=== PATIENT | female | born 1990 | race Caucasian/White ===

== ENCOUNTER 2023-07-09 08:00 | Outpatient (CLI) | payer SELFPAY ==
[2023-07-10 10:07] LABS: BILIRUBIN,URINE NEGATIVE (NEGATIVE); GLUCOSE, URINE (UA) NEGATIVE (NEGATIVE); KETONES,URINE (UA) NEGATIVE (NEGATIVE); LEUKOCYTE ESTERASE, URINE SMALL (NEGATIVE); NITRITE,URINE NEGATIVE (NEGATIVE); OCCULT BLOOD,URINE NEGATIVE (NEGATIVE); PROTEIN,URINE NEGATIVE (NEGATIVE); UROBILINOGEN,URINE 0.2 (NORMAL) E.U./dL (NORMAL)
[2023-07-10 10:21] LABS: CLARITY,URINE CLEAR (CLEAR); RBC,URINE None Seen /HPF (0-5); SQUAMOUS EPITHELIAL CELL,UR FEW Squamous (<= Few); WBC,URINE 0-3 /HPF (0-5)
[2023-07-10 10:22] LABS: BACTERIA,URINE Few /HPF (None Seen); EPITHELIAL CELLS,UR RARE Transitional /HPF (<= Few)
[2023-07-10 23:05] LABS: CHLAMYDIA TRACHOMATIS DNA NEGATIVE (NEGATIVE); NEISSERIA GONORRHOEAE DNA NEGATIVE (NEGATIVE); TRICHOMONAS VAGINALIS DNA NEGATIVE (NEGATIVE)
== END 2023-07-09 08:01 | disposition home or self-care (01) ==
LOC: LAB.WC 08:00
PROVIDERS: ATTEND Nurse Practitioner
DX: O26.20 Pregnancy care for patient with recurrent pregnancy loss, unspecified trimester (principal)
CPT/HCPCS: 81001; 87086; 87491; 87591; 87661

== ENCOUNTER 2023-07-19 16:06 | Outpatient (CLI) | payer MEDICAID ==
--- NOTE | 2023-07-19 19:22 | Ultrasound Report ---
PROCEDURE: OB First Trimester INDICATIONS: HIGH RISK OUTSIDE/PRIOR DATING DATA: Last menstrual period (LMP): Unknown. LMP-based estimated date of delivery (KATLYN): Unknown. First dating scan (date and location): 07/19/2023. Estimated date of delivery (KATLYN) from first dating scan: 02/07/2024. TECHNIQUE: Real-time scanning was performed of the fetus and maternal pelvic organs, with image documentation. COMPARISON: None. FINDINGS: Intrauterine gestational sac present. Embryo: [place]-rump length measuring 4.2 cm, consistent with 11 weeks and 0 days. Heart rate: 164 bpm. Other: No perigestational fluid collection. Measurement variability in dating: +/- 4 weeks by LMP, +/- 7 days by mean sac diameter (use before 6 weeks gestation if crown-rump length not able to be measured), +/- 5 days by crown-rump length (6-12 weeks gestation). Maternal organs: Ovaries appear within normal limits. IMPRESSION: Single live intrauterine consistent with 11 weeks and 0 days. Reviewed by: Wade Urban MD on 07/19/2023 7:20 PM PST Approved by: Wade Urban MD on 07/19/2023 7:20 PM PST Station ID: [id number]
== END 2023-07-19 16:07 | disposition home or self-care (01) ==
LOC: DI 16:06
PROVIDERS: ATTEND Nurse Practitioner
DX: O26.21 Pregnancy care for patient with recurrent pregnancy loss, first trimester (principal); Z3A.11 11 weeks gestation of pregnancy

== ENCOUNTER 2023-09-04 09:58 | Outpatient (CLI) | payer MEDICAID ==
[2023-09-04 10:28] LABS: BASOPHILS % (AUTO) 0.4 %; EOSINOPHILS # (AUTO) 0.2 10^3/uL (0.0-0.7); EOSINOPHILS % (AUTO) 2.3 %; HCT - HEMATOCRIT 35.9 % (37.0-47.0); HGB - HEMOGLOBIN 12.2 g/dL (12.0-16.0); LYMPHOCYTES # (AUTO) 1.1 10^3/uL (1.5-3.5); LYMPHOCYTES % (AUTO) 14.5 %; MEAN CORPUSCULAR HEMOGLOBIN 29.8 pg (27.0-31.0); MEAN CORPUSCULAR VOLUME 87.8 fL (81.0-99.0); MONOCYTES # (AUTO) 0.3 10^3/uL (0.0-1.0); MONOCYTES % (AUTO) 3.7 %; NEUTROPHILS # (AUTO) 5.7 10^3/uL (1.5-6.6); NEUTROPHILS % (AUTO) 78.8 %; PLT - PLATELET COUNT 133 10^3/uL (130-450); RED BLOOD COUNT 4.09 10^6/uL (4.20-5.40); RED CELL DISTRIBUTION WIDTH 13.6 % (12.0-15.0); WHITE BLOOD COUNT 7.2 x10^3/uL (4.8-10.8)
[2023-09-04 10:42] LABS: ALBUMIN 4.1 g/dL (3.2-5.5); ALBUMIN/GLOBULIN RATIO 1.6 (1.0-2.2); BILIRUBIN,TOTAL 0.9 mg/dL (0.2-1.0); CREATININE 0.5 mg/dL (0.6-1.3); POTASSIUM 3.5 mmol/L (3.5-4.5); TOTAL PROTEIN 6.6 g/dL (6.4-8.9)
[2023-09-05 03:14] LABS: HCV AB Non Reactive (Non Reactive)
[2023-09-05 06:34] LABS: RPR Non Reactive (Non Reactive)
[2023-09-05 08:17] LABS: HBsAG SCREEN Negative (Negative); HIV SCREEN 4TH GENERATION Non Reactive (Non Reactive)
[2023-09-05 13:17] LABS: VARICELLA-ZOSTER AB IGG 1126 index (Immune >165)
== END 2023-09-04 09:59 | disposition home or self-care (01) ==
LOC: LAB 09:58
PROVIDERS: ATTEND Nurse Practitioner
DX: O26.20 Pregnancy care for patient with recurrent pregnancy loss, unspecified trimester (principal); O99.891 Other specified diseases and conditions complicating pregnancy; R42 Dizziness and giddiness
CPT/HCPCS: 36415; 80053; 82570; 84156; 85025; 86592; 86762; 86787; 86803; 86850; 86900; 86901; 87340; 87389

== ENCOUNTER 2023-09-07 08:00 | Outpatient (CLI) | payer MEDICAID ==
[2023-09-07 15:51] LABS: BILIRUBIN,URINE NEGATIVE (NEGATIVE); GLUCOSE, URINE (UA) NEGATIVE (NEGATIVE); KETONES,URINE (UA) NEGATIVE (NEGATIVE); LEUKOCYTE ESTERASE, URINE SMALL (NEGATIVE); NITRITE,URINE NEGATIVE (NEGATIVE); OCCULT BLOOD,URINE NEGATIVE (NEGATIVE); PH,URINE 6.5 PH (5.0-7.5); PROTEIN,URINE NEGATIVE (NEGATIVE); UROBILINOGEN,URINE 0.2 (NORMAL) E.U./dL (NORMAL)
[2023-09-07 16:05] LABS: BACTERIA,URINE Rare /HPF (None Seen); CLARITY,URINE CLEAR (CLEAR); RBC,URINE 0-5 /HPF (0-5); SQUAMOUS EPITHELIAL CELL,UR RARE Squamous (<= Few); WBC,URINE 0-3 /HPF (0-5)
== END 2023-09-07 23:59 | disposition home or self-care (01) ==
LOC: LAB.WC 08:00
PROVIDERS: ATTEND Nurse Practitioner
DX: O26.20 Pregnancy care for patient with recurrent pregnancy loss, unspecified trimester (principal)
CPT/HCPCS: 81001; 87086

== ENCOUNTER 2023-09-28 19:11 | Outpatient (CLI) | payer MEDICAID ==
--- NOTE | 2023-09-29 20:29 | Ultrasound Report ---
PROCEDURE: OB Anatomy Scan INDICATIONS: HIGH RISK OUTSIDE/PRIOR DATING DATA: Last menstrual period (LMP): Unknown. LMP-based estimated date of delivery (KATLYN): Unknown. First dating scan (date and location): 07/19/2023. Estimated date of delivery (KATLYN) from first dating scan: 02/07/2024. The below data below was generated using the study generated KATLYN of 02/07/2024 TECHNIQUE: Real-time scanning was performed of the fetus, with image documentation and biometric measurements. Endovaginal scanning: Not performed. COMPARISON: 07/19/2023 FINDINGS: General: A single living intrauterine gestation is present. Presentation: Variable Placenta: Placental position is anterior, without previa. Amniotic fluid index: 16.6 cm, within normal limits for gestational age. heart rate: 155 beats per minute. Maternal cervical canal: 5.25 cm long; normal length is 2.5 cm or more. biometrics: Biparietal diameter: 5.05 cm, 21 weeks, 2 days, 55.1% Head circumference: 18.59 cm, 20 weeks, 6 days, 30.7%. Abdominal circumference: 16.88 cm, 21 weeks, 6 days, 67.3%. Femur length: 3.4 cm, 20 weeks, 5 days, 25.3% Estimated gestational age from initial scan: 21 weeks, 1 day Composite gestational age from present scan: 21 weeks, 1 day Estimated weight and percentile: 413.4 g, 53.0%. Measurement variability in biometric dating: +/- 10 days from 12-20 weeks gestation, +/- 2 weeks from 20-30 weeks gestation, +/- 3 weeks at 30 weeks gestation or later. Anatomic survey: Neuro: Ventricles are normal at less than 10 mm. Cisterna magna is normal at 3-11 mm. Cerebellum i s normal in size and morphology. Nuchal skin fold: Normal at less than 6 mm between 14 and 20 weeks gestational age. Face: Nose and lips, facial profile are normal. Spine: No evidence for spina bifida. Heart: 4-chambered heart is present, with normal ventricular outflow tracts. Diaphragm: Diaphragm is intact. Stomach: Left-sided stomach is present. Kidneys: No hydronephrosis. Normal is less than 5 mm in 2nd trimester, less than 7 mm in 3rd trimester. Cord: 3 vessel cord has orthotopic insertion. Bladder: Normal in size. Extremities: All 4 extremities are visualized. IMPRESSION: 1. Single live intrauterine gestation with fetus in variable presentation. heart rate is 155 bp m. Normal amount of amniotic fluid. Normal growth. Estimated weight is at 53%. 2. Normal anatomic survey. Reviewed by: Bob Pollock MD on 09/29/2023 8:27 PM PST Approved by: Bob Pollock MD on 09/29/2023 8:27 PM PST Station ID: [id number]
== END 2023-09-28 19:12 | disposition home or self-care (01) ==
LOC: DI 19:11
PROVIDERS: ATTEND Nurse Practitioner
DX: O26.22 Pregnancy care for patient with recurrent pregnancy loss, second trimester (principal); Z3A.21 21 weeks gestation of pregnancy

== ENCOUNTER 2023-11-09 10:15 | Outpatient (CLI) | payer MEDICAID ==
[2023-11-09 11:36] LABS: HCT - HEMATOCRIT 35.9 % (37.0-47.0); HGB - HEMOGLOBIN 12.3 g/dL (12.0-16.0); MEAN CORPUSCULAR HEMOGLOBIN 30.5 pg (27.0-31.0); MEAN CORPUSCULAR HGB CONC 34.3 g/dL (32.0-36.0); MEAN CORPUSCULAR VOLUME 89.1 fL (81.0-99.0); MEAN PLATELET VOLUME 9.6 fL (7.9-10.8); RED BLOOD COUNT 4.03 10^6/uL (4.20-5.40); RED CELL DISTRIBUTION WIDTH 12.2 % (12.0-15.0); WHITE BLOOD COUNT 7.7 x10^3/uL (4.8-10.8)
== END 2023-11-09 10:16 | disposition home or self-care (01) ==
LOC: LAB 10:15
PROVIDERS: ATTEND Nurse Practitioner
DX: O09.522 Supervision of elderly multigravida, second trimester (principal)
CPT/HCPCS: 36415; 82950; 85027; 86850; 86900; 86901

== ENCOUNTER 2023-11-19 09:06 | Outpatient (CLI) | payer MEDICAID ==
--- NOTE | 2023-11-19 09:18 | PROVIDER PROGRESS NOTE ---
- HPI Chief Complaint: Decreased movement Current : Current EDU 02/07/24 Gestation 28 Weeks and 4 Days 3 Para 2 Vital Signs Temperature 98.1 F 11/19/23 09:26 Heart Rate 94 11/19/23 09:26 Respiratory Rate 17 11/19/23 09:26 Blood Pressure 117/59 L 11/19/23 09:26 Temperature 98.1 F 11/19/23 09:26 Heart Rate 94 11/19/23 09:26 Respiratory Rate 17 11/19/23 09:26 Blood Pressure 117/59 L 11/19/23 09:26 O2 Saturation If not protocol: Oxygen Flow, liters/minute - Procedures OB Procedure Performed: NST Diagnosis/Indication for NST: Decreased movement NST Procedure: FHT: 145 beats per baseline, moderate variability, accelerations present, no 1 variable deceleration. Reactive NST [place]: Rare Service Date of procedure: 11/19/23 (Read 11/19/23) - Plan Plan: Patient is a 33-year-old -0-0-2 at 28 weeks 4 days gestation presented with decreased movement. She says she felt baby move last night although less than before. She did try kick counts but noticed less moving than she would expect. Since arrival has had increased movement. Physical Exam Constitutional: alert, no acute distress, well hydrated, well developed, well nourished, appropriate dress. Abdomen: nondistended, nontender, no guarding. Psych: affect and mood appropriate, normal interaction, good eye contact. SINGH 13.1cm 33-year-old -0-0-2 at 28 weeks 4 days gestation with decreased movement Decreased movement -Adequate movement since arrival. Reassured after reactive NST. -Discussed kick counts and movement expectations. -One variable deceleration noted, but overall reassuring Normal SINGH -Follow up for routine care -Routine care
[2023-11-19 09:33] VITALS: BP 117/59
== END 2023-11-19 10:20 | disposition home or self-care (01) ==
LOC: WFO 09:06 → FBP 09:09 → WFO 10:20
PROVIDERS: ATTEND Obstetrics & Gynecology
DX: O36.8130 Decreased fetal movements, third trimester, not applicable or unspecified (principal); Z3A.28 28 weeks gestation of pregnancy
CPT/HCPCS: 59025; 99213

== ENCOUNTER 2023-12-04 15:52 | Outpatient (CLI) | payer MEDICAID ==
--- NOTE | 2023-12-05 21:02 | Ultrasound Report ---
PROCEDURE: OB Follow up INDICATIONS: UTERINE SIZE DISCREPANCY OUTSIDE/PRIOR DATING DATA: Last menstrual period (LMP): Unknown. LMP-based estimated date of delivery (KATLYN): Not applicable. First dating scan (date and location): 07/19/2023. Estimated date of delivery (KATLYN) from first dating scan: 02/07/2024. The below data below was generated using the clinical KATLYN of 02/07/2024 TECHNIQUE: Real-time scanning was performed of the fetus, with image documentation and biometric measurements. Endovaginal scanning: Not performed. COMPARISON: OB ultrasound on 09/28/2023 FINDINGS: General: A single living intrauterine gestation is present. Presentation: Vertex Placenta: Placental position is anterior, without previa. Amniotic fluid index: 11.5 cm, within normal limits for gestational age. heart rate: 152 beats per minute. Maternal cervical canal: 4.24 cm long; normal length is 2.5 cm or more. biometrics: Biparietal diameter: 7.79 cm, 31 weeks and 3 days, 56% Head circumference: 29.4 cm, 32 weeks and 3 days, 64.4% Abdominal circumference: 26.03 cm, 30 weeks and 1 day, 29.9% Femur length: 5.6 cm, 29 weeks and 4 days, 9.7% Estimated gestational age from initial scan: 30 weeks and 5 days Composite gestational age from present scan: 30 weeks and 6 days Estimated weight and percentile: 1540.7 g, 23.7% Measurement variability in biometric dating: +/- 10 days from 12-20 weeks gestation, +/- 2 weeks from 20-30 weeks gestation, +/- 3 weeks at 30 weeks gestation or more. Other: Not applicable. IMPRESSION: 1.Single living intrauterine gestation in vertex presentation. 2.Estimated weight is at the lower limits of normal at 23.7%. 3.Femur length is 5.6 cm at 9.7%. 4.SINGH is 11.5 cm. Reviewed by: Rand Wilson MD on 12/05/2023 9:01 PM PDT Approved by: Rand Wilson MD on 12/05/2023 9:01 PM PDT Station ID: [id number]
== END 2023-12-04 15:53 | disposition home or self-care (01) ==
LOC: DI 15:52
PROVIDERS: ATTEND Nurse Practitioner
DX: O26.843 Uterine size-date discrepancy, third trimester (principal); Z3A.30 30 weeks gestation of pregnancy

== ENCOUNTER 2023-12-14 10:01 | Outpatient (CLI) | payer MEDICAID ==
[2023-12-14 10:28] VITALS: BP 116/69
--- NOTE | 2023-12-14 10:53 | PROVIDER PROGRESS NOTE ---
- HPI Current : Vital Signs Temperature 209.5 F H 12/14/23 10:19 Heart Rate 85 12/14/23 10:19 Respiratory Rate 16 12/14/23 10:19 Blood Pressure 116/69 12/14/23 10:19 Temperature 209.5 F H 12/14/23 10:19 Heart Rate 85 12/14/23 10:19 Respiratory Rate 16 12/14/23 10:19 Blood Pressure 116/69 12/14/23 10:19 O2 Saturation If not protocol: Oxygen Flow, liters/minute - Procedures NST Procedure: NST Procedure Start Time 09:22 Stop Time 10:00 - Plan Plan: Patient is a 33-year-old -0-3-1 at 32 weeks 1 day gestation presenting today from clinic for cramping. She is unsure if this is labor. No dysuria. Good movement. No leaking or bleeding. Physical Exam Constitutional: alert, no acute distress, well hydrated, well developed, well nourished, appropriate dress. Cardiovascular: Regular rate and rhythm. Respiratory: no respiratory distress. Abdomen: nondistended, nontender, no guarding. Psych: affect and mood appropriate, normal interaction, good eye contact. FHT: 130 bpm baseline, moderate variability, accelerations present, no decelerations. Reactive [place]: Quiescent SVE: 0/0/-3 NST read and performed on 12/14/2023 Assessment and plan Abdominal cramping: -No contractions noted on monitor. Declined repeat cervical exam and as she is not louie, this is reasonable. On exam there was a large amount of discharge on my glove. -Vaginosis panel collected. Likely yeast infection. Will follow-up once results are back. Will likely treat as outpatient. False labor -Reactive NST, no contractions
[2023-12-14 15:45] LABS: BACTERIAL VAGINOSIS DNA POSITIVE (NEGATIVE)
[2023-12-14 15:46] LABS: CANDIDA GLABRATA DNA NEGATIVE (NEGATIVE); CANDIDA GROUP DNA POSITIVE (NEGATIVE); CANDIDA KRUSEI DNA NEGATIVE (NEGATIVE); TRICHOMONAS VAGINALIS DNA NEGATIVE (NEGATIVE)
== END 2023-12-14 11:50 | disposition home or self-care (01) ==
LOC: WFO 10:01 → FBP 10:05 → WFO 11:50
PROVIDERS: ATTEND Obstetrics & Gynecology
DX: O99.891 Other specified diseases and conditions complicating pregnancy (principal); R10.9 Unspecified abdominal pain; N89.8 Other specified noninflammatory disorders of vagina; O47.03 False labor before 37 completed weeks of gestation, third trimester; Z3A.32 32 weeks gestation of pregnancy
CPT/HCPCS: 59025; 81514; 99213; 99215

== ENCOUNTER 2024-01-06 09:36 | Emergency (ER) | payer MEDICAID ==
[2024-01-06 11:11] LABS: RAPID STREP SCREEN Negative (Negative)
[2024-01-06 11:25] LABS: B. PARAPERTUSSIS- RESP PCR PAN NOT DETECTED; B. PERTUSSIS- RESP PCR PANEL NOT DETECTED; C. PNEUMONIAE- RESP PCR PANEL NOT DETECTED; CORONAVIRUS 229E-RESP PCR NOT DETECTED; CORONAVIRUS HKU1-RESP PCR NOT DETECTED; CORONAVIRUS NL63-RESP PCR NOT DETECTED; CORONAVIRUS OC43-RESP PCR NOT DETECTED; HUMAN METAPNEUMOVIRUS NOT DETECTED; INFLUENZA A- RESP PCR PANEL NOT DETECTED; INFLUENZA B - RESP PCR PANEL NOT DETECTED; M. PNEUMONIAE- RESP PCR PANEL NOT DETECTED; PARAINFLUENZA VIRUS 1 NOT DETECTED; PARAINFLUENZA VIRUS 2 NOT DETECTED; PARAINFLUENZA VIRUS 3 NOT DETECTED; PARAINFLUENZA VIRUS 4 NOT DETECTED; RHINOVIRUS/ENTEROVIRUS DETECTED; RSV- RESP PCR PANEL NOT DETECTED; SARS-CoV-2 -RESP PCR PANEL NOT DETECTED
[2024-01-06 11:37] VITALS: BP 118/64
--- NOTE | 2024-01-06 11:46 | ED Physician Documentation ---
PD HPI URI - Stated complaint Stated Complaint: SOA,COUGH - Chief complaint Chief Complaint: Resp - History obtained from History obtained from: Patient - Additional information Additional information: Patient is a 33-year-old female who is approximately 35 weeks presenting for evaluation of cough and congestion for the past 3 days. Patient states she was coughing so hard last night that she felt like she was having trouble catching her breath but that has improved today. She has been feeling baby movement denies abdominal pain or discharge. Denies any complications with this . 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(s) : None HEENT: None Psych: None Musculoskeletal: None Derm: None - Past Surgical History Past Surgical History: Yes Ortho: Other - Present Medications Home Medications: Ambulatory Orders Medication Instructions Recorded Confirmed Pnv No.95/Ferrous Fum/Folic AC 1 each PO DAILY 01/06/24 01/06/24 [ Tablet] - Allergies Allergies/Adverse Reactions: Allergies Allergy/AdvReac Type Severity Reaction Status Date / Time No Known Drug Allergies Allergy Verified 01/06/24 09:43 - Social History Does the pt smoke?: No Smoking Status: Never smoker Does the pt drink ETOH?: No Does the pt have substance abuse?: Yes Substance Use and Type: Marijuana - Immunizations Immunizations are current?: No Immunizations: Other immun not current - POLST Patient has POLST: No PD ED PE NORMAL - General General: Alert and oriented X 3, No acute distress, Well developed/nourished - HEENT HEENT: Atraumatic, Moist mucous membranes, Pharynx benign (No oral swelling, erythema or exudate) - Neck Neck: Supple, no meningeal sign - Cardiac Cardiac: RRR, Strong equal pulses - Respiratory Respiratory: No respiratory distress, Clear bilaterally - Abdomen Abdomen: Normal bowel sounds, Soft, Other (Gravid uterus above umbilicus) - Derm Derm: Warm and dry - Extremities Extremities: No edema - Neuro Neuro: Normal speech Results - Vitals Vitals: Vital Signs - 24 hr 01/06/24 01/06/24 01/06/24 09:45 11:15 11:32 Temperature 36.2 C L Heart Rate 89 83 78 Respiratory 20 17 16 Rate Blood Pressure 113/76 118/64 O2 Saturation 99 99 99 01/06/24 11:50 Temperature 36.2 C L Heart Rate 90 Respiratory 16 Rate Blood Pressure 118/64 O2 Saturation 98 Oxygen O2 Source Room air - Labs Labs: Laboratory Tests 01/06/24 01/06/24 09:59 10:57 Nasal Adenovirus (PCR) NOT DETECTED Nasal B. parapertussis DNA (PCR) NOT DETECTED Nasal Coronavir 229E PCR NOT DETECTED Nasal Coronavir HKU1 PCR NOT DETECTED Nasal Coronavir NL63 PCR NOT DETECTED Nasal Coronavir OC43 PCR NOT DETECTED Nasal Enterovir/Rhinovir PCR DETECTED A Nasal Influenza B PCR NOT DETECTED Nasal Influenza A PCR NOT DETECTED Nasal Parainfluen 1 PCR NOT DETECTED Nasal Parainfluen 2 PCR NOT DETECTED Nasal Parainfluen 3 PCR NOT DETECTED Nasal Parainfluen 4 PCR NOT DETECTED Nasal RSV (PCR) NOT DETECTED Nasal B.pertussis DNA PCR NOT DETECTED Nasal C.pneumoniae (PCR) NOT DETECTED Jas Human Metapneumo PCR NOT DETECTED Nasal M.pneumoniae (PCR) NOT DETECTED Nasal SARS-CoV-2 (PCR) NOT DETECTED Group A Strep Rapid Negative PD Medical Decision Making - ED course Complexity details: reviewed results, d/w patient ED course: Patient is a 33-year-old female approximately 35 weeks presenting with cough and congestion for few days. VSS. Lungs clear. Rapid strep is negative. heart tones were obtained and patient has no signs of precipitous labor. Blood pressure is within normal limits. Symptoms are likely viral in nature and she has not had any significant coughing here. Doubt pulmonary embolism. Respiratory swab is pending at discharge but has resulted positive for rhinovirus. Patient was instructed on supportive care for likely viral illness. She is advised on concerning symptoms to return for. Departure - Departure Disposition: 01 Home, Self Care Clinical Impression: Rhinovirus, Upper respiratory infection with cough and congestion Condition: Stable Instructions: ED Viral Syndrome Comments: Your strep test is negative. Your respiratory swab is positive for Enterovirus/rhinovirus which causes, and cold symptoms.It is negative for COVID or flu. You can use benzocaine cough drops to help with your sore throat. I would also recommend saline spray in the nose to help loosen congestion. Return to the ER with any worsening symptoms. Forms: PCP List Discharge Date/Time: 01/06/24 11:51
[2024-01-06 11:56] VITALS: O2SAT 98
== END 2024-01-06 11:51 | disposition home or self-care (01) ==
LOC: ED 09:36
DX: O26.893 Other specified pregnancy related conditions, third trimester (principal); J06.9 Acute upper respiratory infection, unspecified; O98.513 Other viral diseases complicating pregnancy, third trimester; B34.8 Other viral infections of unspecified site; Z3A.35 35 weeks gestation of pregnancy
CPT/HCPCS: 87070; 87430; 87633; 99283

== ENCOUNTER 2024-01-11 08:00 | Outpatient (CLI) | payer MEDICAID ==
[2024-01-11 10:44] LABS: RUPTURE OF MEMBRANES PLUS NEGATIVE (NEGATIVE)
[2024-01-11 18:19] LABS: CHLAMYDIA TRACHOMATIS DNA NEGATIVE (NEGATIVE); NEISSERIA GONORRHOEAE DNA NEGATIVE (NEGATIVE)
[2024-01-11 18:20] LABS: BACTERIAL VAGINOSIS DNA NEGATIVE (NEGATIVE); CANDIDA GLABRATA DNA NEGATIVE (NEGATIVE); CANDIDA GROUP DNA NEGATIVE (NEGATIVE); CANDIDA KRUSEI DNA NEGATIVE (NEGATIVE); TRICHOMONAS VAGINALIS DNA NEGATIVE (NEGATIVE)
== END 2024-01-11 23:59 | disposition home or self-care (01) ==
LOC: LAB.WC 08:00
PROVIDERS: ATTEND Nurse Practitioner
DX: O99.891 Other specified diseases and conditions complicating pregnancy (principal); N89.8 Other specified noninflammatory disorders of vagina; Z36.85 Encounter for antenatal screening for Streptococcus B
CPT/HCPCS: 81514; 84112; 87491; 87591; 87661; 87797

== ENCOUNTER 2024-01-11 13:17 | Outpatient (CLI) | payer MEDICAID ==
--- NOTE | 2024-01-11 23:09 | Ultrasound Report ---
PROCEDURE: OB Biophysical Profile INDICATIONS: SUPERVISION OF OUTSIDE/PRIOR DATING DATA: Last menstrual period (LMP): Unknown. LMP-based estimated date of delivery (KATLYN): Not applicable. First dating scan (date and location): 07/19/2023. Estimated date of delivery (KATLYN) from first dating scan: 02/07/2024. The below data below was generated using the ultrasound KATLYN of 02/07/2024 TECHNIQUE: Real-time scanning was performed of the fetus, with image documentation and biometric nohemi surements. Biophysical profile was also obtained. Endovaginal scanning: Not performed COMPARISON: 12/04/2023 FINDINGS: General: A single living intrauterine gestation is present. Presentation: Vertex Placenta: Placental position is anterior, without previa. Amniotic fluid index: 12.0 cm cm, 32nd percentile for gestational age. heart rate: 160 beats per minute. Maternal cervical canal: 3.5 cm long; normal length is 2.5 cm or more. Estimated gestational age from initial scan: 36 weeks and 1 day. Biophysical profile: Tone: 2 points. Movement: 2 points. Respiration: 2 points. Largest pocket of fluid: 2 points. Largest vertical pocket measured 4.7 cm. IMPRESSION: Single living intrauterine gestation with estimated gestational age of approximately 36 weeks and 1 d ay. Biophysical profile score of 8 out of 8. Reviewed by: Ace Thibodeaux MD on 01/11/2024 11:08 PM PDT Approved by: Ace Thibodeaux MD on 01/11/2024 11:08 PM PDT Station ID: [id number]
== END 2024-01-11 13:18 | disposition home or self-care (01) ==
LOC: DI 13:17
PROVIDERS: ATTEND Nurse Practitioner
DX: O09.523 Supervision of elderly multigravida, third trimester (principal); Z3A.36 36 weeks gestation of pregnancy

== ENCOUNTER 2024-01-13 11:22 | Outpatient (CLI) | payer MEDICAID ==
[2024-01-13 11:38] VITALS: BP 115/72
--- NOTE | 2024-01-13 13:13 | PROCEDURE REPORT ---
- HPI Diagnosis/Indication for NST: Other (AMA) Vital Signs Temperature 98.1 F 01/13/24 11:26 Heart Rate 99 01/13/24 11:26 Respiratory Rate 16 01/13/24 11:26 Blood Pressure 115/72 01/13/24 11:26 Temperature 98.1 F 01/13/24 11:26 Heart Rate 99 01/13/24 11:26 Respiratory Rate 16 01/13/24 11:26 Blood Pressure 115/72 01/13/24 11:26 O2 Saturation If not protocol: Oxygen Flow, liters/minute - NST Procedure NST Procedure Start Time 10:28 Stop Time 11:28 - Results and Plan Findings/Impression: Reactive, Cat 1 Plan: Follow up as scheduled.
== END 2024-01-13 12:45 | disposition home or self-care (01) ==
LOC: WFO 11:22 → FBP 11:22 → WFO 12:45
PROVIDERS: ATTEND Obstetrics & Gynecology
DX: O09.523 Supervision of elderly multigravida, third trimester (principal); O34.211 Maternal care for low transverse scar from previous cesarean delivery; O26.23 Pregnancy care for patient with recurrent pregnancy loss, third trimester
CPT/HCPCS: 59025

== ENCOUNTER 2024-01-18 12:37 | Outpatient (CLI) | payer MEDICAID ==
--- NOTE | 2024-01-19 00:26 | Ultrasound Report ---
PROCEDURE: OB Biophysical Profile INDICATIONS: SUPERVISION OF OUTSIDE/PRIOR DATING DATA: Last menstrual period (LMP): Unknown. LMP-based estimated date of delivery (KATLYN): Unknown. First dating scan (date and location): 07/19/2023. Estimated date of delivery (KATLYN) from first dating scan: 02/07/2024. The below data below was generated using the working KATLYN of 02/07/2024 TECHNIQUE: Real-time scanning was performed of the fetus, with image documentation and biometric nohemi surements. Biophysical profile was also obtained. Endovaginal scanning: No COMPARISON: None. FINDINGS: General: A single living intrauterine gestation is present. Presentation: Vertex Placenta: Placental position is anterior, without previa. Amniotic fluid index: 15.8 cm, 63.9 for gestational age. heart rate: 143 beats per minute. Maternal cervical canal: 4.1 cm long; normal length is 2.5 cm or more. biometrics: Biparietal diameter: 8.9 cm, 36 week 1 day, 39 percentile Head circumference: 13.8 cm, 37 week 2 day, 27th percentile Abdominal circumference: 32 cm, 36 week 1 day, 34 percentile Femur length: 3.9 cm, 35 week 3 day, 10.9 percentile Estimated gestational age from initial scan: 37 week 1 day Composite gestational age from present scan: 36 week 2 day Estimated weight and percentile: 283 6 g, 28 percentile Measurement variability in biometric dating: +/- 10 days from 12-20 weeks gestation, +/- 2 weeks from 20-30 weeks gestation, +/- 3 weeks at 30 weeks gestation or later. Biophysical profile: Tone: 2 points. Movement: 2 points. Respiration: 2 points. Largest pocket of fluid: 2 points. IMPRESSION: Single live IVC consistent with 36 week 2 day gestation by current ultrasound. Biophysical profile score 8 out of 8 Reviewed by: Ricky Reynoso MD on 01/18/2024 11:24 PM JB Approved by: Ricky Reynoso MD on 01/18/2024 11:24 PM AKMIHIR Station ID: [id number]
== END 2024-01-18 12:38 | disposition home or self-care (01) ==
LOC: DI 12:37
PROVIDERS: ATTEND Nurse Practitioner
DX: O09.523 Supervision of elderly multigravida, third trimester (principal); Z3A.36 36 weeks gestation of pregnancy

== ENCOUNTER 2024-01-18 12:49 | Outpatient (CLI) | payer MEDICAID ==
--- NOTE | 2024-01-19 00:26 | Ultrasound Report ---
PROCEDURE: OB Follow up INDICATIONS: UTERINE SIZE DATE DISCREPENCY OUTSIDE/PRIOR DATING DATA: Last menstrual period (LMP): Unknown. LMP-based estimated date of delivery (KATLYN): Unknown. First dating scan (date and location): 07/19/2023. Estimated date of delivery (KATLYN) from first dating scan: 02/07/2024. The below data below was generated using the working KATLYN of 02/07/2024 TECHNIQUE: Real-time scanning was performed of the fetus, with image documentation and biometric nohemi surements. Biophysical profile was also obtained. Endovaginal scanning: No COMPARISON: None. FINDINGS: General: A single living intrauterine gestation is present. Presentation: Vertex Placenta: Placental position is anterior, without previa. Amniotic fluid index: 15.8 cm, 63.9 for gestational age. heart rate: 143 beats per minute. Maternal cervical canal: 4.1 cm long; normal length is 2.5 cm or more. biometrics: Biparietal diameter: 8.9 cm, 36 week 1 day, 39 percentile Head circumference: 13.8 cm, 37 week 2 day, 27th percentile Abdominal circumference: 32 cm, 36 week 1 day, 34 percentile Femur length: 3.9 cm, 35 week 3 day, 10.9 percentile Estimated gestational age from initial scan: 37 week 1 day Composite gestational age from present scan: 36 week 2 day Estimated weight and percentile: 283 6 g, 28 percentile Measurement variability in biometric dating: +/- 10 days from 12-20 weeks gestation, +/- 2 weeks from 20-30 weeks gestation, +/- 3 weeks at 30 weeks gestation or later. Biophysical profile: Tone: 2 points. Movement: 2 points. Respiration: 2 points. Largest pocket of fluid: 2 points. IMPRESSION: Single live IVC consistent with 36 week 2 day gestation by current ultrasound. Biophysical profile score 8 out of 8 Reviewed by: Ricky Reynoso MD on 01/18/2024 11:25 PM JB Approved by: Ricky Reynoso MD on 01/18/2024 11:25 PM JB Station ID: [id number]
== END 2024-01-18 12:50 | disposition home or self-care (01) ==
LOC: DI 12:49
PROVIDERS: ATTEND Obstetrics & Gynecology
DX: O26.843 Uterine size-date discrepancy, third trimester (principal); Z3A.36 36 weeks gestation of pregnancy

== ENCOUNTER 2024-01-26 11:11 | Outpatient (CLI) | payer MEDICAID ==
--- NOTE | 2024-01-26 20:03 | Ultrasound Report ---
PROCEDURE: OB Biophysical Profile INDICATIONS: SUPERVISION OF OUTSIDE/PRIOR DATING DATA: Last menstrual period (LMP): Unknown. LMP-based estimated date of delivery (KATLYN): Unknown. First dating scan (date and location): 07/19/2023. Estimated date of delivery (KATLYN) from first dating scan: 02/07/2024. The below data below was generated using the ultrasound KATLYN of 02/07/2024 TECHNIQUE: Real-time scanning was performed of the fetus, with image documentation. Biophysical pro file was also obtained. Endovaginal scanning: Not performed. COMPARISON: OB ultrasound 01/18/2024. FINDINGS: General: A single living intrauterine gestation is present. Presentation: Vertex Placenta: Placental position is anterior/fundal, without previa. Amniotic fluid index: 14.5 cm, normal for gestational age. Largest pocket 4.6 cm. heart rate: 158 beats per minute. Maternal cervical canal: Not well seen. Estimated gestational age from initial scan: 38 weeks 2 days. Biophysical profile: Tone: 2 points. Movement: 2 points. Respiration: 2 points. Largest pocket of fluid: 2 points. IMPRESSION: 1. [place] living intrauterine at 38 weeks 2 days based on prior dating. Vertex position. 2. Normal placenta and amniotic fluid. 3. Normal biophysical profile. Score 8 out of 8. Reviewed by: Jose Manuel Garzon MD on 01/26/2024 8:02 PM PDT Approved by: Jose Manuel Garzon MD on 01/26/2024 8:02 PM PDT Station ID: [id number]
== END 2024-01-26 11:12 | disposition home or self-care (01) ==
LOC: DI 11:11
PROVIDERS: ATTEND Nurse Practitioner
DX: O09.523 Supervision of elderly multigravida, third trimester (principal); Z3A.38 38 weeks gestation of pregnancy

== ENCOUNTER 2024-02-02 06:45 | Inpatient (IN) | payer MEDICAID ==
[2024-02-02 07:30] LABS: BASOPHILS % (AUTO) 0.5 %; EOSINOPHILS # (AUTO) 0.3 10^3/uL (0.0-0.7); EOSINOPHILS % (AUTO) 4.1 %; HCT - HEMATOCRIT 33.9 % (37.0-47.0); HGB - HEMOGLOBIN 11.4 g/dL (12.0-16.0); LYMPHOCYTES # (AUTO) 1.2 10^3/uL (1.5-3.5); LYMPHOCYTES % (AUTO) 18.7 %; MEAN CORPUSCULAR HEMOGLOBIN 29.2 pg (27.0-31.0); MEAN CORPUSCULAR HGB CONC 33.6 g/dL (32.0-36.0); MEAN CORPUSCULAR VOLUME 86.9 fL (81.0-99.0); MEAN PLATELET VOLUME 10.7 fL (7.9-10.8); MONOCYTES # (AUTO) 0.6 10^3/uL (0.0-1.0); MONOCYTES % (AUTO) 9.1 %; NEUTROPHILS # (AUTO) 4.4 10^3/uL (1.5-6.6); NEUTROPHILS % (AUTO) 67.1 %; PLT - PLATELET COUNT 135 10^3/uL (130-450); RED CELL DISTRIBUTION WIDTH 12.9 % (12.0-15.0); WHITE BLOOD COUNT 6.6 x10^3/uL (4.8-10.8)
[2024-02-02] MEDS ORDERED: ACETAMINOPHEN 325 MG TABLET PO ONE (07:45)
[2024-02-02] MEDS: CITRIC ACID/SODIUM CITRATE 15 ML UDC PO ONE (08:06)
[2024-02-02] MEDS ORDERED: PHENYLEPHRINE 10 MG/ML VIAL ONE (08:21)
[2024-02-02] MEDS: ceFAZolin (2G) 2 GM in SODIUM CHLORIDE 0.9% MINIBAG 100 ML IV ONE (08:30)
[2024-02-02] MEDS ORDERED: OXYTOCIN/SODIUM CHLORIDE 500 ML IV ONE (08:30)
[2024-02-02] MEDS ORDERED: MORPHINE PF 5 MG/10 ML VIAL ONE (08:32)
[2024-02-02] MEDS ORDERED: ePHEDrine 50 MG/ML VIAL IVP ONE (08:33)
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
[2024-02-02] MEDS ORDERED: OXYTOCIN 10 UNIT/ML VIAL ONE (08:38)
[2024-02-02] MEDS ORDERED: MORPHINE PF 5 MG/10 ML VIAL IT ONE (08:45)
[2024-02-02] MEDS: ACETAMINOPHEN 1,000 MG/100 ML 1,000 MG/100 ML BAG IV ONE (09:00)
[2024-02-02] MEDS ORDERED: ONDANSETRON 4 MG/2 ML VIAL ONE (09:02)
[2024-02-02] MEDS ORDERED: ROPIVACAINE 0.5% PF 20 ML VIAL ONE (09:31)
[2024-02-02] MEDS ORDERED: SODIUM CHLORIDE 0.9% 10 ML VIAL IVP ONE (09:32)
[2024-02-02] MEDS ORDERED: ONDANSETRON 4 MG/2 ML VIAL IVP PRN ×2 (10:13→11:08)
[2024-02-02] MEDS ORDERED: NALOXONE 0.4 MG/ML VIAL IVP PRN ×2 (10:13→11:08)
[2024-02-02] MEDS ORDERED: fentaNYL 100 MCG/2 ML VIAL IVP PRN (10:13)
[2024-02-02] MEDS ORDERED: MORPHINE 2 MG/ML CARPUJECT IVP PRN (10:13)
[2024-02-02] MEDS ORDERED: ATROPINE ABBOJECT 1 MG/10 ML SYRINGE IVP PRN (10:13)
[2024-02-02] MEDS ORDERED: HYDROmorphone 0.5 MG/0.5 ML SYRINGE IVP PRN (10:13)
[2024-02-02] MEDS: LACTATED RINGERS 1,000 ML IV ONE ×2 (10:21→10:29)
[2024-02-02] MEDS: KETOROLAC 30 MG/ML VIAL ONE (10:45)
[2024-02-02] MEDS ORDERED: SODIUM CHLORIDE FLUSH 0.9% 10 ML SYRINGE IVP PRN (10:49)
[2024-02-02] MEDS ORDERED: OXYTOCIN/SODIUM CHLORIDE 500 ML IV PRN (10:49)
[2024-02-02] MEDS ORDERED: ONDANSETRON ODT 4 MG TABLET TL PRN ×2 (10:49)
--- NOTE | 2024-02-02 10:53 | OPERATIVE REPORT ---
Operative Report - General Admit Date: 02/02/24 Procedure Date: 02/02/24 Planned Procedure: Repeat low-transverse section Pre-Op Diagnosis: Previous low-transverse section Procedure Performed: Repeat low-transverse section Post Op Diagnosis: Previous low-transverse section - Procedure Note Primary Surgeon: Willy Raymond MD Secondary Surgeon: Lora Ricci MD Anesthesia Provider: Franklyn Camargo CRNA Anesthesia Technique: Spinal Pathology: None Estimated Blood Loss (mL): 750 (See anesthesia record for IV fluids and urine outpt) Findings: Normal-appearing uterus, tubes, ovaries. Complications: None - Other Other Information/Narrative: Prior to the procedure, she was counseled on the risk, benefits, alternatives of section. Prior to being taken to the OR, 2 grams of cefazolin IV was administered. The patient was taken to the operating room where regional anesthesia was found to be adequate. She was then prepared and draped in the usual sterile fashion in the dorsal supine position with a leftward tilt displacing the uterus. [place] was draining to gravity. SCDs were on bilateral lower extremities. Time out was taken. A pfannenstiel skin incision was then made with the scalpel and carried through to the underlying layer of fascia. The fascia was incised in the midline and the incision extended laterally with the Najera scissors. The superior aspect of the facial incision was then grasped with the Maggi clamps, elevated and the underlying rectus muscles dissected off sharply. Attention was then turned to the inferior aspect of this incision which in a similar fashion was grasped, elevated with the Maggi clamps and the rectus muscle dissected off sharply. The rectus muscles were in the midline. The peritoneum identified, grasped with the pick-ups and entered sharply with the Metzenbaum scissors. The peritoneal incision was then extended superiorly and inferiorly with good visualization of the bladder. The bladder blade was inserted. The vesicouterine peritoneum was identified, grasped with the pick-ups, and entered sharply with Metzenbaum scissors. This incision was then extended laterally and the bladder flap created digitally. The bladder blade was reinserted. The lower uterine segment was identified and incised in a transverse fashion with the scalpel. The uterine incision was then extended bluntly laterally. Artificial rupture of membranes demonstrated clear fluid. The bladder blade was removed. The fetus was in a cephalic presentation. The infants head delivered atraumatically. The anterior shoulders were delivered followed by the posterior shoulders then the remainder of the body. The infants mouth and nose were bulb suctioned. The umbilical cord was clamped times two and cut. The was handed to the pediatric team. The placenta was removed with gentle traction. Oxytocin was added to the IV fluid and was allowed to run freely. The uterus was exteriorized and cleared of all clots and debris. The uterine incision was inspected and found to be without any extensions and was repaired with 0 Vicryl in a running, locked fashion. A second imbricating layer was performed. She required several additional [id number] stitches for hemostasis. Upon inspection, the repaired hysterotomy was found to be hemostatic. The uterus was firm and returned to the abdomen. The gutters were cleared of all clots and debris. The muscle layer was examined and found to be hemostatic. The fascia was reapproximated with 0 Vicryl in a running fashion. The skin was closed in a subcuticular fashion with 4-0 Monocryl. The patient tolerated the procedure well. Sponge, lap and needle counts were correct times three. The patient was taken to the recovery room in stable condition. I appreciate the assistance of Dr. Ricci during this procedure, and the assistance in retraction, visualization, dissection, and overall assistance during the case were instrumental to the patient's wellbeing.
--- NOTE | 2024-02-02 10:54 | ANESTHESIA ---
Pre-Anesthesia VS, & Labs - Diagnosis previous c section - Procedure repeat c section Vital Signs: Temp Pulse Resp BP Pulse Ox O2 Flow Rate 37.0 C 83 15 119/70 100 02/02/24 07:24 02/02/24 07:08 02/02/24 07:08 02/02/24 07:08 02/02/24 07:08 Height: 5 ft 5 in Weight (kg): 72.121 kg Body Mass Index: 26.4 BMI Classification: Overweight - NPO >8 hours - Is Patient ?: Yes - Lab Results Current Lab Results: Laboratory Tests 02/02/24 07:15: WBC 6.6, RBC 3.90 L, Hgb 11.4 L, Hct 33.9 L, MCV 86.9, MCH 29.2, MCHC 33.6, RDW 12.9, Plt Count 135, MPV 10.7, Neut # (Auto) 4.4, Lymph # (Auto) 1.2 L, [place] # (Auto) 0.6, Eos # (Auto) 0.3, Baso # (Auto) 0.0, Absolute Nucleated RBC 0.00, Nucleated RBC % 0.0 02/02/24 07:15: Blood Type A POSITIVE, Antibody Screen NEGATIVE Lab results reviewed: Yes Fish Bones: 02/02/24 07:15 Home Medications and Allergies Active Medications Acetaminophen (Acetaminophen 500 Mg Tablet) 1,000 mg PO Q8H VIC Atropine Sulfate (Atropine Abboject 1 Mg/10 Ml Syringe) 0.5 mg IVP Q5M PRN PRN Reason: Bradycardia Stop: 02/03/24 10:13 Docusate Sodium (Docusate Sodium 100 Mg Capsule) 100 mg PO BID VIC Fentanyl (Fentanyl 100 Mcg/2 Ml Vial) 25 - 50 mcg IVP Q5M PRN PRN Reason: BREAKTHROUGH PAIN (2nd Choice) Stop: 02/03/24 10:13 Hydromorphone HCl (Hydromorphone 0.5 Mg/0.5 Ml Syringe) 0.2 - 0.6 mg IVP Q5M PRN PRN Reason: PAIN (First Choice) Stop: 02/03/24 10:13 Lactated Ringer's (Lr) 1,000 mls @ 125 mls/hr IV .Q8H VIC Lactated Ringer's (Lr) 1,000 mls @ 100 mls/hr IV .Q10H [facility] Stop: 02/02/24 20:59 Lactated Ringer's (Lr) 1,000 mls @ 100 mls/hr IV .Q10H [facility] Oxytocin/Sodium Chloride (Pitocin/Sodium Chloride) 500 mls @ 999 mls/hr IV PRN PRN; Protocol PRN Reason: POST- HEMORR PREVENTION Ibuprofen (Ibuprofen 600 Mg Tablet) 600 mg PO Q6H [facility] Ketorolac Tromethamine (Ketorolac 30 Mg/Ml Vial) 30 mg IVP Q6H [facility] Stop: 02/03/24 04:01 Measles/Mumps/Rubella Vaccine Live (Measles,Mumps & Rubella Vacc 0.5 Ml Vial) 0.5 ml SUBQ .ONCE ONE Stop: 02/03/24 08:34 Morphine Sulfate (Morphine 2 Mg/Ml Carpuject) 2 - 4 mg IVP Q5M PRN PRN Reason: PAIN (3rd Choice) Stop: 02/03/24 10:13 Naloxone HCl (Naloxone 0.4 Mg/Ml Vial) 0.1 mg IVP Q2M PRN PRN Reason: RESP RATE <8 Stop: 02/03/24 10:13 Ondansetron HCl (Ondansetron 4 Mg/2 Ml Vial) 4 mg IVP ONCE PRN PRN Reason: N/V (First Choice) Stop: 02/03/24 10:13 Ondansetron HCl (Ondansetron Odt 4 Mg Tablet) 4 mg TL Q4H PRN PRN Reason: Nausea / Vomiting Ondansetron HCl (Ondansetron Odt 4 Mg Tablet) 4 mg TL Q6HR PRN PRN Reason: Nausea / Vomiting Oxycodone HCl (Oxycodone 5 Mg Tablet) 5 mg PO Q4HR PRN PRN Reason: PAIN Simethicone (Simethicone Chew 80 Mg Tablet) 80 mg PO TID PRN PRN Reason: Gas Sodium Chloride (Sodium Chloride Flush 0.9% 10 Ml Syringe) 10 ml IVP 0100,0900,1700 [facility] Sodium Chloride (Sodium Chloride Flush 0.9% 10 Ml Syringe) 10 ml IVP PRN PRN PRN Reason: NEEDED PER PROVIDER ORDERS Pnv No.95/Ferrous Fum/Folic AC [ Tablet] 1 each PO DAILY 01/06/24 Allergies/Adverse Reactions: Allergies Allergy/AdvReac Type Severity Reaction Status Date / Time latex Allergy Severe Itching Unverified 02/02/24 08:06 bee venom protein (honey bee) Allergy Anaphylaxis Verified 02/02/24 08:06 avocado AdvReac Itching Verified 02/02/24 08:06 banana AdvReac Itching Verified 02/02/24 08:06 fentanyl AdvReac Hallucinati Uncoded 02/02/24 10:54 ons Anes History & Medical History - Anesthetic History Anesthesia Complications: reports: No previous complications Family history of Anesthesia Complications: Denies - Medical History Cardiovascular: reports: None Pulmonary: reports: None Gastrointestinal: reports: None Urinary: reports: None Neuro: reports: None Musculoskeletal: reports: None, Osteoporosis Endocrine/Autoimmune: reports: None Blood Disorders: reports: None Skin: reports: None Smoking Status: Never smoker Psychosocial: reports: Substance abuse (history of), Cannabis - Surgical History Orthopedic: reports: Other - Obstetrical History : 5 Parity: 1 Events: reports: None, High risk (History of drug use) Complications: reports: None Exam General: Alert, Oriented x3 Dental: WNL Mouth Openin Fingerbreadth Neck Mobility: Normal Mallampati classification: II Thyromental Distance: 4-6 cm Respiratory: Lungs clear Cardiovascular: Regular rate Plan Anesthesia Type: Spinal, Transverse Abdominis Plane (TAP) Block (bilateral post op) Consent for Procedure(s) Verified and Reviewed: Yes Code Status: Attempt Resuscitation ASA classification: 2-Mild systemic disease Is this case an emergency?: No
[2024-02-02] MEDS ORDERED: LACTATED RINGERS 1,000 ML IV SCH ×2 (11:00)
[2024-02-02] MEDS ORDERED: ePHEDrine 50 MG/ML VIAL IVP PRN (11:08)
[2024-02-02] MEDS ORDERED: NALBUPHINE 10 MG/ML AMP IVP PRN (11:08)
[2024-02-02] MEDS ORDERED: diphenhydrAMINE INJ 50 MG/ML VIAL IVP PRN (11:08)
--- NOTE | 2024-02-02 12:26 | ANESTHESIA POST OP EVALUATION ---
Anesthesia Post Eval - Post Anesthesia Eval Vitals: Last Vital Signs Temp 37.1 C 02/02/24 12:11 Pulse 74 02/02/24 12:11 Resp 16 02/02/24 12:11 BP 109/60 02/02/24 12:11 Pulse Ox 98 02/02/24 12:11 O2 Flow Rate CV Function Including HR & BP: Stable Pain Control: Satisfactory Nausea & Vomiting: Negative Mental Status: Baseline Respiratory Status: Airway Patent Hydration Status: Satisfactory Anesthesia Complications: None
[2024-02-02] MEDS: LACTATED RINGERS 1,000 ML IV SCH (13:29)
[2024-02-02] MEDS: KETOROLAC 30 MG/ML VIAL IVP SCH (17:30)
[2024-02-02] MEDS: ACETAMINOPHEN 500 MG TABLET PO SCH (17:30)
[2024-02-02] MEDS: DOCUSATE SODIUM 100 MG CAPSULE PO SCH (21:32)
[2024-02-02] MEDS: SODIUM CHLORIDE FLUSH 0.9% 10 ML SYRINGE IVP SCH (23:49)
[2024-02-02] MEDS: oxyCODONE 5 MG TABLET PO PRN (23:58)
[2024-02-03] MEDS: ACETAMINOPHEN 500 MG TABLET PO ONE (05:38)
[2024-02-03 06:26] LABS: BASOPHILS % (AUTO) 0.4 %; EOSINOPHILS # (AUTO) 0.2 10^3/uL (0.0-0.7); EOSINOPHILS % (AUTO) 1.9 %; HCT - HEMATOCRIT 30.9 % (37.0-47.0); HGB - HEMOGLOBIN 10.2 g/dL (12.0-16.0); LYMPHOCYTES # (AUTO) 1.1 10^3/uL (1.5-3.5); LYMPHOCYTES % (AUTO) 13.6 %; MEAN CORPUSCULAR HEMOGLOBIN 28.7 pg (27.0-31.0); MEAN PLATELET VOLUME 10.3 fL (7.9-10.8); MONOCYTES # (AUTO) 0.5 10^3/uL (0.0-1.0); MONOCYTES % (AUTO) 5.8 %; NEUTROPHILS # (AUTO) 6.5 10^3/uL (1.5-6.6); NEUTROPHILS % (AUTO) 77.9 %; PLT - PLATELET COUNT 127 10^3/uL (130-450); RED BLOOD COUNT 3.55 10^6/uL (4.20-5.40); WHITE BLOOD COUNT 8.3 x10^3/uL (4.8-10.8)
--- NOTE | 2024-02-03 08:17 | PROVIDER PROGRESS NOTE ---
Subjective - Subjective Subjective: Subjective Patient reports she is doing well. Lochia appropriate. Denies heavy bleeding. Ambulating. Pelvic and abdominal pain well-controlled. Tolerating oral intake. Diet: Regular. Voiding without difficulty. Passing flatus. Denies BM. Patient is bonding with baby in room Breast feeding going well. Denies feeling lightheaded, dizzy or excessively fatigued. Objective General: Alert, oriented, no apparent distress. Cardiovascular: Regular rate. Regular rhythm. Lungs: No increased work of breathing. Abdomen: Uterus firm. Below umbilicus. No guarding or rebound. Extremities: No pain on palpation. No cords palpated. Distal pulses intact. Incision: Clean, dry, and intact. Bandage removed today Assessment and Plan day 1. -Routine care -Anticipate discharge tomorrow Rubella nonimmune -MMR today Status post repeat low-transverse section -Routine postoperative care Objective - Vital Signs/Intake & Output Intake & Output: Intake & Output 01/31/24 02/01/24 02/02/24 02/03/24 23:59 23:59 23:59 23:59 Intake Total 150 1250 Output Total 950 Balance -800 1250 - Lab Results Fish Bones: 02/03/24 06:17 Other Labs: Lab Results x24hrs 02/03/24 02/02/24 Range/Units 06:17 07:15 WBC 8.3 (4.8-10.8) x10^3/uL RBC 3.55 L (4.20-5.40) 10^6/uL Hgb 10.2 L (12.0-16.0) g/dL Hct 30.9 L (37.0-47.0) % MCV 87.0 (81.0-99.0) fL MCH 28.7 (27.0-31.0) pg MCHC 33.0 (32.0-36.0) g/dL RDW 13.0 (12.0-15.0) % Plt Count 127 L (130-450) 10^3/uL MPV 10.3 (7.9-10.8) fL Neut # (Auto) 6.5 (1.5-6.6) 10^3/uL Lymph # (Auto) 1.1 L (1.5-3.5) 10^3/uL [place] # (Auto) 0.5 (0.0-1.0) 10^3/uL Eos # (Auto) 0.2 (0.0-0.7) 10^3/uL Baso # (Auto) 0.0 (0.0-0.1) 10^3/uL Absolute Nucleated RBC 0.00 x10^3/uL Nucleated RBC % 0.0 /100WBC Blood Type A POSITIVE Antibody Screen NEGATIVE
--- NOTE | 2024-02-03 12:01 | PHARMACY PROGRESS NOTE ---
- Best Possible Medication History Admit Date and Time: 02/02/24 0645 Processed by: Pharmacy Medications reviewed in ED?: No Medication History completed: Yes Patient Interview: Pt unable to participate Secondary Source(s): Insurance records As the person ultimately responsible for medication therapy, providers are able to order a medication from an existing home medication list in [facility] via the "Reconcile Routine" prior to Confirmation of that medication by field support representative. Such practice is discouraged except when the physician, in their clinical judgment, deems that a medical need exists for a medication without regard to previous use.
[2024-02-03] MEDS: IBUPROFEN 600 MG TABLET PO SCH (12:12)
[2024-02-03] MEDS: SIMETHICONE CHEW 80 MG TABLET PO PRN (16:09)
[2024-02-04 04:23] VITALS: O2SAT 99
[2024-02-04 10:08] VITALS: BP 114/73
--- NOTE | 2024-02-04 10:29 | Discharge Plan ---
Discharge Plan Problem Reviewed?: Yes Disposition: Home, Self Care Condition: Good Diet: Regular Activity Restrictions: Activity as Tolerated Shower Restrictions: No Driving Restrictions: Yes (No driving with oxycodone) Weight Bearing: Full Weight Instruction Topics: , , Depression No Smoking: If you smoke, Please STOP! Call for help. Follow-up with: Willy Raymond MD [Provider Admit Priv/Credential] -
--- NOTE | 2024-02-04 10:39 | DISCHARGE SUMMARY ---
Discharge Summary Admit Date: 02/02/24 Discharge Date: 02/04/24 Discharging Provider: Yesy Angeles DO Code Status: Attempt Resuscitation Condition at Discharge: Good Discharge Disposition: 01 Home, Self Care Discharge Facility Name: [facility] - DIAGNOSES Admission Diagnoses: Prior section, desires repeat section 33yo 39.2w IUP - HPI History of Present Illness: 33yo at 39.2w presented 02/02/24 for scheduled RCD. - HOSPITAL COURSE Hospital Course: 33yo at 39.2w presented 02/02/24 for scheduled RCD. See operative report for uncomplicated RCD. She is recovering well. Appropriate lochia. Ambulating. Voiding. Tolerating regular diet. . Mood is ok. Passing flatus. She feels ready to go home POD#2. MMR vaccine given for rubella-NI. and postoperative care reviewed. - ALLERGIES Allergies/Adverse Reactions: Allergies Allergy/AdvReac Type Severity Reaction Status Date / Time latex Allergy Severe Itching Unverified 02/02/24 08:06 bee venom protein (honey bee) Allergy Anaphylaxis Verified 02/02/24 08:06 avocado AdvReac Itching Verified 02/02/24 08:06 banana AdvReac Itching Verified 02/02/24 08:06 fentanyl AdvReac Hallucinati Uncoded 02/02/24 10:54 ons - MEDICATIONS Home Medications: Ambulatory Orders Medication Instructions Recorded Confirmed Pnv No.95/Ferrous Fum/Folic AC 1 tab PO DAILY 01/06/24 02/03/24 [ Tablet] Famotidine [Acid-Pep] 20 mg PO DAILY 02/03/24 02/03/24 - PHYSICAL EXAM AT DISCHARGE General Appearance: positive: No acute distress Eyes Bilateral: positive: EOMI Respiratory: positive: No respiratory distress Abdomen: positive: Other (Incision c/d/i with steri strips) Skin: positive: Color nml Extremities: positive: Non-tender Neurologic/Psychiatric: positive: Oriented x3 - LABS Result Diagrams: 02/03/24 06:17 - QUALITY (Female Hip Fx Only) Was patient sent home on osteoporosis medication?: No - FOLLOW UP Follow Up: 02/11/24 [facility] - TIME SPENT Time Spent in Discharge (Minutes): 25
[2024-02-04] MEDS: MEASLES,MUMPS & RUBELLA VACC 0.5 ML VIAL SUBQ ONE (12:15)
--- NOTE | 2024-02-04 12:46 | Labor Flowsheet ---
Labor Flowsheet Datetime Report Generated by CPN: 02/04/2024 12:46 Datetime: 02/04/2024 09:24 VAGINAL EXAM Membranes Ruptured Date/Time: 02/02/2024 09:14 Amniotic Fluid Color: Clear
[2024-02-04] MEDS ORDERED: MEASLES,MUMPS & RUBELLA VACC 0.5 ML VIAL SUBQ ONE (13:00)
== END 2024-02-04 12:45 | disposition home or self-care (01) | DRG 788 ==
LOC: FBP 06:45
PROVIDERS: ADMIT Obstetrics & Gynecology; ATTEND Obstetrics & Gynecology
PROC: 10D00Z1 Extraction of Products of Conception, Low, Open Approach (ICD-10-PCS; principal; 2024-02-02 08:30)
DX: O34.211 Maternal care for low transverse scar from previous cesarean delivery (principal); Z3A.39 39 weeks gestation of pregnancy; Z37.0 Single live birth; Z23 Encounter for immunization; Z86.19 Personal history of other infectious and parasitic diseases; Z87.898 Personal history of other specified conditions
CPT/HCPCS: 36415; 85025; 86850; 86900; 86901; A9270; J0131; J2274; J2795; J7120

== ENCOUNTER 2024-02-25 21:51 | Emergency (ER) | payer MEDICAID ==
[2024-02-25 22:15] LABS: BASOPHILS # (AUTO) 0.1 10^3/uL (0.0-0.1); EOSINOPHILS # (AUTO) 0.6 10^3/uL (0.0-0.7); HCT - HEMATOCRIT 36.7 % (37.0-47.0); LYMPHOCYTES # (AUTO) 1.8 10^3/uL (1.5-3.5); LYMPHOCYTES % (AUTO) 35.9 %; MEAN CORPUSCULAR HEMOGLOBIN 28.7 pg (27.0-31.0); MEAN CORPUSCULAR HGB CONC 32.7 g/dL (32.0-36.0); MEAN CORPUSCULAR VOLUME 87.8 fL (81.0-99.0); MEAN PLATELET VOLUME 10.1 fL (7.9-10.8); MONOCYTES # (AUTO) 0.4 10^3/uL (0.0-1.0); MONOCYTES % (AUTO) 7.2 %; NEUTROPHILS # (AUTO) 2.2 10^3/uL (1.5-6.6); NEUTROPHILS % (AUTO) 43.9 %; PLT - PLATELET COUNT 177 10^3/uL (130-450); RED BLOOD COUNT 4.18 10^6/uL (4.20-5.40); RED CELL DISTRIBUTION WIDTH 12.2 % (12.0-15.0)
[2024-02-25 22:29] LABS: ALBUMIN 4.3 g/dL (3.2-5.5); ALBUMIN/GLOBULIN RATIO 1.8 (1.0-2.2); BILIRUBIN,TOTAL 0.8 mg/dL (0.2-1.0); CALCIUM 9.8 mg/dL (8.5-10.3); CREATININE 0.7 mg/dL (0.6-1.3); TOTAL PROTEIN 6.7 g/dL (6.4-8.9)
[2024-02-25 22:53] LABS: BILIRUBIN,URINE NEGATIVE (NEGATIVE); GLUCOSE, URINE (UA) NEGATIVE (NEGATIVE); KETONES,URINE (UA) NEGATIVE (NEGATIVE); LEUKOCYTE ESTERASE, URINE NEGATIVE (NEGATIVE); NITRITE,URINE NEGATIVE (NEGATIVE); OCCULT BLOOD,URINE NEGATIVE (NEGATIVE); PROTEIN,URINE NEGATIVE (NEGATIVE); UROBILINOGEN,URINE 0.2 (NORMAL) E.U./dL (NORMAL)
[2024-02-25 22:54] LABS: CLARITY,URINE CLEAR (CLEAR)
--- NOTE | 2024-02-26 01:19 | ED Physician Documentation ---
PD HPI ABD PAIN - Stated complaint Stated Complaint: POST OP PX - Chief complaint Chief Complaint: Abd Pain - History obtained from History obtained from: Patient, Family - History of Present Illness Timing - onset: Today Timing - duration: Hours Timing - details: Abrupt onset, Still present Quality: Sharp, Pain Location: RLQ Improved by: Laying still Worsened by: Moving, Position, Palpation Associated symptoms: No: Nausea, Vomiting, Diarrhea, Constipation Similar symptoms before: Has not had sx before Recently seen: Surgery - Additional information Additional information: Olya Griffin is a 33-year-old female who has had a section for delivery of a baby 3 weeks ago. She progressed well and was feeling quite well. Today after feeding the baby she went to stand up from her chair and had sudden onset of severe pain in the right lower quadrant bringing her to her knees. She has had persistence of this pain since and any movement that she makes causes worsening of the pain. If she is still she has improvement. She has persistence of pain at rest as well. She has not had nausea vomiting fever or diarrhea. Review of Systems Constitutional: denies: Fever Eyes: denies: Decreased vision Ears: denies: Ear pain Nose: denies: Congestion Throat: denies: Sore throat Cardiac: denies: Chest pain / pressure Respiratory: denies: Cough GI: reports: Abdominal Pain. 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 HEENT: None Psych: None Musculoskeletal: None, Osteoporosis Derm: None - Past Surgical History Past Surgical History: Yes Ortho: Other /FUNCTIONAL CONSULTANT: section - Present Medications Home Medications: Ambulatory Orders Medication Instructions Recorded Confirmed Pnv No.95/Ferrous Fum/Folic AC 1 tab PO DAILY 01/06/24 02/26/24 [ Tablet] - Allergies Allergies/Adverse Reactions: Allergies Allergy/AdvReac Type Severity Reaction Status Date / Time latex Allergy Severe Itching Verified 02/25/24 21:59 bee venom protein (honey bee) Allergy Anaphylaxis Verified 02/25/24 21:59 avocado AdvReac Itching Verified 02/25/24 21:59 banana AdvReac Itching Verified 02/25/24 21:59 fentanyl AdvReac Hallucinati Uncoded 02/25/24 21:59 ons - Social History Does the pt smoke?: No Smoking Status: Never smoker Does the pt drink ETOH?: No Does the pt have substance abuse?: Yes - Immunizations Immunizations are current?: No Immunizations: Other immun not current - POLST Patient has POLST: No PD ED PE NORMAL - Vitals Vital signs reviewed: Yes (Normal) - General General: Alert and oriented X 3, No acute distress, Well developed/nourished - HEENT HEENT: Atraumatic, PERRL, EOMI - Neck Neck: Supple, no meningeal sign, No bony TTP - Cardiac Cardiac: RRR, No murmur - Respiratory Respiratory: No respiratory distress, Clear bilaterally - Abdomen Abdomen: Normal bowel sounds, Soft, Non distended, No organomegaly, Other (Specific tenderness to the right lower quadrant specifically over the lower abdomen on the right side just above the incision. The incision is tender as well without drainage or mass. There are no peritoneal signs. Deep palpation of the abdomen in other places does not cause pain to the area. 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, No motor deficit, No sensory deficit, Normal speech Eye Opening: Spontaneous Motor: Obeys Commands Verbal: Oriented GCS Score: 15 - Psych Psych: Normal mood, Normal affect Results - Vitals Vitals: Vital Signs - 24 hr 02/25/24 02/25/24 02/26/24 21:53 23:58 01:00 Temperature 36.4 C L 36.5 C Heart Rate 85 71 74 Respiratory 16 16 16 Rate Blood Pressure 122/76 122/68 126/84 H O2 Saturation 97 98 96 02/26/24 02/26/24 02/26/24 01:39 03:00 03:44 Temperature 36.5 C 36 C L 36.2 C L Heart Rate 72 72 78 Respiratory 16 16 15 Rate Blood Pressure 121/68 122/68 122/68 O2 Saturation 99 98 99 Oxygen O2 Source Room air - Labs Labs: Laboratory Tests 02/25/24 02/25/24 02/25/24 22:09 22:09 22:47 WBC 5.0 RBC 4.18 L Hgb 12.0 Hct 36.7 L MCV 87.8 MCH 28.7 MCHC 32.7 RDW 12.2 Plt Count 177 MPV 10.1 Neut # (Auto) 2.2 Lymph # (Auto) 1.8 [place] # (Auto) 0.4 Eos # (Auto) 0.6 Baso # (Auto) 0.1 Absolute Nucleated RBC 0.00 Nucleated RBC % 0.0 Sodium 136 Potassium 4.0 Chloride 102 Carbon Dioxide 28 Anion Gap 6.0 BUN 12 Creatinine 0.7 Estimated GFR (MDRD) 95 Glucose 90 Calcium 9.8 Total Bilirubin 0.8 AST 20 ALT 27 Alkaline Phosphatase 59 Total Protein 6.7 Albumin 4.3 Globulin 2.4 Albumin/Globulin Ratio 1.8 Lipase 27 Urine Color YELLOW Urine Clarity CLEAR Urine pH 7.0 Ur Specific [place] 1.020 Urine Protein NEGATIVE Urine Glucose (UA) NEGATIVE Urine Ketones NEGATIVE Urine Occult Blood NEGATIVE Urine Nitrite NEGATIVE Urine Bilirubin NEGATIVE Urine Urobilinogen 0.2 (NORMAL) Ur Leukocyte Esterase NEGATIVE Ur Microscopic Review NOT INDICATED Urine Culture Comments NOT INDICATED - Rads (name of study) CT ab/pel with Relevant Findings:: Prelim report reviewed (Impression: 1. Appendix not well- visualized and therefore could not be accurately evaluated. No evidence of inflammatory changes in the right lower quadrant.), EMP independent inter pretation of test, See rad report PD Medical Decision Making - ED course Complexity details: considered differential, d/w patient Reviewed Lab Results: We reviewed a complete blood count which showed a normal white blood cell count normal hemoglobin hematocrit and platelets normal indices chemistries are with normal electrolytes normal kidney and liver function normal lipase urinalysis shows clear urine with a specific gravity 1.020 and is negative for any sign of infection. I interpret these laboratory results to be reassuring that the patient does not have an infectious process or any overwhelming process. ED course: 33-year-old female with acute onset of right lower quadrant abdominal pain is diagnosed with an abdominal wall strain 3 weeks after a section. I considered appendicitis in the differential and the patient is afebrile has a normal white blood cell count has no peritoneal signs, she is eating has no nausea. She does have specific point tenderness to the right lower quadrant. I discussed the findings with the patient and her mother we will provide some pain medication and asked the patient to be reexamined by her OB doctor in the a.m. I got ready to discharge the patient from the emergency department went into her room to find her in extreme pain I reconsidered discharge and put in an order for a CT scan of the abdomen pelvis to be certain we were not missing appendicitis or some other specific catastrophe. The results of this scan are: Impression: 1. Appendix not definitely individualized and therefore could not be accurately evaluated. No evidence of inflammatory changes in the right lower quadrant. 2. There is a small questionably tubular hypodense region in the right aspect of the posterior cul-de-sac, posterior to the right ovary which may be due to trace free pelvic fluid, artifact, or dilated fallopian tube. Finding could be further evaluated with ultrasound. We do not have the ability to do ultrasound after hours and the diagnosis of torsion would fit the patient's presentation of severe pain. The patient was administered pain medication and had marked improvement in her pain. This gave me less concern for torsion but I am recommending the patient to follow-up with Dr. Raymond in the morning for for reevaluation. Ultrasound may still be indicated. Departure - Departure Disposition: 01 Home, Self Care Clinical Impression: Abdominal wall strain Qualifiers: Encounter type: initial encounter Qualified Code(s): S39.011A - Strain of muscle, fascia and tendon of abdomen, initial encounter Condition: Stable Instructions: ED Abdominal Pain Appendx Poss, ED Strain Abdominal Muscle Follow-Up: Willy Raymond MD [Provider Admit Priv/Credential] - Comments: Konstance, today this looks like you have strained your abdominal wall muscle where your incision is and the expectation is this may take a week or more for this to resolve. Because this is in the right lower quadrant I have added some additional instructions to be concerned about appendicitis. I do not feel that this is appendicitis and I am expecting a benign course. The severe pain that you experienced may be related to a condition called ovarian torsion and an urgent follow-up with Dr. Raymond is indicated. Follow-up in the morning. We will provide you with some pain medication for tonight. Forms: PCP List Discharge Date/Time: 02/26/24 03:44
[2024-02-26] MEDS: HYDROcod/ACET 5/325 Prepack 4 PO STA (01:32)
[2024-02-26] MEDS: HYDROcod/ACETAM 5/325 MG TABLET PO STA (01:32)
[2024-02-26 01:40] VITALS: O2SAT 99
[2024-02-26] MEDS ORDERED: iohexoL-300 100 ML VIAL ONE (01:54)
[2024-02-26] MEDS: iohexoL-300 100 ML VIAL IVP ONE (02:20)
[2024-02-26 03:45] VITALS: BP 122/68
--- NOTE | 2024-02-26 08:43 | CT Report ---
PROCEDURE: Abdomen/Pelvis W INDICATIONS: RLQ pain CONTRAST: Omni 300, 100mls. TECHNIQUE: After the administration of intravenous contrast, a CT scan of the abdomen and pelvis was performed. Images were recorded and evaluated at appropriate window settings. Reformats: coronal and sagittal. F or radiation dose reduction, the following was used: automated exposure control, adjustment of mA and /or kV according to patient size. COMPARISON: OB ultrasound 01/26/2024. FINDINGS: Image quality: Diagnostic. Lower chest: Unremarkable. Liver: No solid mass. Gallbladder: No radiopaque stones or wall thickening. Biliary tree: No intrahepatic or extrahepatic dilation, accounting for age. Spleen: No splenomegaly. Pancreas: No pancreatic ductal dilation. Adrenals: No adrenal nodule. Kidneys and ureters: No hydronephrosis. No renal cystic lesion which requires follow up. No solid mas s. Stomach, bowel and peritoneum: No gastric or small bowel dilation. No abnormal wall thickening. No pa thologic free fluid. The appendix is partially visualized, (47). The visualized portions are not di lated. Lymph nodes: No central or retroperitoneal adenopathy. Vessels: No infrarenal aortic aneurysm. PELVIS Reproductive organs: Anteverted uterus. section scar suspected. Curvilinear structure or cys tic structure in the right pelvis measuring 2.6 cm, (). Bladder: No stone. Pelvic lymph nodes: No pelvic adenopathy by size criteria. Bones: No aggressive osseous abnormality. Other: No significant ventral or inguinal hernia. Mild stranding at the lower abdominal wall likely d ue to prior section scar. IMPRESSION: 1. The appendix is partially visualized and is not dilated. No inflammatory change in the right lower quadrant is appreciated. 2. Cystic structure or tubular structure at the right pelvis measuring 2.6 cm. This could represent a paraovarian/ovarian cyst, hydrosalpinx, or trace free fluid. Pelvic ultrasound could be considered f or further evaluation. 3. No hydronephrosis. No kidney stone seen. This report is concordant with the overnight preliminary interpretation. Reviewed by: Jose Manuel Garzon MD on 02/26/2024 8:42 AM PDT Approved by: Jose Manuel Garzon MD on 02/26/2024 8:42 AM PDT Station ID: [id number]
== END 2024-02-26 03:44 | disposition home or self-care (01) ==
LOC: ED 21:51
DX: O90.89 Other complications of the puerperium, not elsewhere classified (principal); S39.011A Strain of muscle, fascia and tendon of abdomen, initial encounter; X58.XXXA Exposure to other specified factors, initial encounter
CPT/HCPCS: 36415; 74177; 80053; 81003; 83690; 85025; 99283; 99284; A9270; Q9967; 81001; 87086

== ENCOUNTER 2024-05-20 07:59 | Emergency (ER) | payer MEDICAID ==
--- NOTE | 2024-05-20 08:12 | ED Physician Documentation ---
PD HPI NVD - Stated complaint Stated Complaint: VOMITING, HOT & COLD SHAKES - History obtained from History obtained from: Patient - History of Present Illness Timing - onset: How many days ago (3) Timing - duration: Days (3) Timing - details: Abrupt onset, Still present Associated symptoms: Fever, Loss of appetite Contributing factors: Sick contact. No: Bad food, Recent antibiotics Similar symptoms before: Has not had sx before Review of Systems Constitutional: reports: Fever, Chills, Myalgias Nose: reports: Congestion GI: reports: Nausea, Vomiting. 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 - Present Medications Home Medications: Ambulatory Orders Medication Instructions Recorded Confirmed Pnv No.95/Ferrous Fum/Folic AC 1 tab PO DAILY 01/06/24 02/26/24 [ Tablet] Ondansetron Odt [Zofran] 4 mg TL Q6H PRN #10 tablet 05/20/24 Promethazine Supp [Phenergan Supp] 25 mg [place] Q6H PRN #5 supp 05/20/24 - Allergies Allergies/Adverse Reactions: Allergies Allergy/AdvReac Type Severity Reaction Status Date / Time latex Allergy Severe Itching Verified 05/20/24 08:13 bee venom protein (honey bee) Allergy Anaphylaxis Verified 05/20/24 08:13 avocado AdvReac Itching Verified 05/20/24 08:13 banana AdvReac Itching Verified 05/20/24 08:13 fentanyl AdvReac Hallucinati Verified 05/20/24 08:27 ons - Social History Does the pt smoke?: No Smoking Status: Never smoker Does the pt drink ETOH?: No Does the pt have substance abuse?: Yes - Immunizations Immunizations are current?: No Immunizations: Other immun not current - POLST Patient has POLST: No PD ED PE NORMAL - Vitals Vital signs reviewed: Yes - General General: Alert and oriented X 3, Well developed/nourished - HEENT HEENT: Pharynx benign. No: Moist mucous membranes - Neck Neck: Supple, no meningeal sign, No adenopathy - Cardiac Cardiac: RRR, No murmur - Respiratory Respiratory: Clear bilaterally - Abdomen Abdomen: Normal bowel sounds, Soft, Non tender, Non distended Results - Vitals Vitals: Vital Signs - 24 hr 05/20/24 11:04 Temperature 36.6 C Heart Rate 93 Respiratory 18 Rate Blood Pressure 115/65 O2 Saturation 98 Oxygen O2 Source Room air - Labs Labs: Laboratory Tests 05/20/24 05/20/24 08:28 08:28 WBC 7.9 RBC 4.83 Hgb 13.4 Hct 40.3 MCV 83.4 MCH 27.7 MCHC 33.3 RDW 12.5 Plt Count 170 MPV 10.3 Neut # (Auto) 6.4 Lymph # (Auto) 1.0 [place] # (Auto) 0.3 Eos # (Auto) 0.1 Baso # (Auto) 0.1 Absolute Nucleated RBC 0.00 Nucleated RBC % 0.0 Sodium 138 Potassium 3.8 Chloride 102 Carbon Dioxide 21 Anion Gap 15.0 H BUN 14 Creatinine 0.7 Estimated GFR (MDRD) 95 Glucose 64 L Calcium 9.9 Magnesium 1.5 L Total Bilirubin 2.2 H AST 19 ALT 19 Alkaline Phosphatase 50 Total Protein 7.3 Albumin 5.2 Globulin 2.1 Albumin/Globulin Ratio 2.5 H Lipase 10 L PD Medical Decision Making - ED course Complexity details: re-evaluated patient (feeling improved with IV fluids and meds. Basic labs normal enough with isolated bili 2.2 elevation mild without other LFTs. ), considered differential (flu like symptoms with nausea and vomiting. Has 4 month old child , but pt denies redness/swelling/tender of breasts. ), d/w patient Departure - Departure Disposition: 01 Home, Self Care Clinical Impression: Flu-like symptoms Nausea and vomiting Qualifiers: Vomiting type: unspecified Qualified Code(s): R11.2 - Nausea with vomiting, unspecified Condition: Stable Record reviewed to determine appropriate education?: Yes Instructions: ED Nausea Vomiting Prescriptions: Promethazine Supp [Phenergan Supp] 25 mg [place] Q6H PRN #5 supp PRN Reason: Nausea / Vomiting Ondansetron Odt [Zofran] 4 mg TL Q6H PRN #10 tablet PRN Reason: Nausea / Vomiting Comments: This sounds likely to be a viral type illness given your symptoms. Hopefully the most active nausea and vomiting has settled now and we can contain the symptoms well enough with antinauseant medications both orally and if needed suppository. Still stay will hide irrigated with small frequent sips. Your stomach will be happy with larger volumes. Cumulatively though can hydrate with frequency. Electrolyte solutions are good. [place] food initially such as carbohydrates of [employer] rice breads etc. crackers. These tend to absorb easiest. Return if worsening symptoms. Otherwise also include some Tylenol 4 times daily for the next several days presuming no be some fever and chills up and down. I sent your prescriptions to your preferred pharmacy. Forms: PCP List Discharge Date/Time: 05/20/24 11:20
[2024-05-20] MEDS: FAMOTIDINE 20 MG/2 ML VIAL IVP STA (08:33)
[2024-05-20] MEDS: SODIUM CHLORIDE 0.9% 1,000 ML IV STA (08:33)
[2024-05-20] MEDS: ONDANSETRON 4 MG/2 ML VIAL IVP STA (08:33)
[2024-05-20 08:47] LABS: BASOPHILS # (AUTO) 0.1 10^3/uL (0.0-0.1); BASOPHILS % (AUTO) 0.9 %; EOSINOPHILS # (AUTO) 0.1 10^3/uL (0.0-0.7); EOSINOPHILS % (AUTO) 1.5 %; HCT - HEMATOCRIT 40.3 % (37.0-47.0); HGB - HEMOGLOBIN 13.4 g/dL (12.0-16.0); LYMPHOCYTES % (AUTO) 12.1 %; MEAN CORPUSCULAR HEMOGLOBIN 27.7 pg (27.0-31.0); MEAN CORPUSCULAR HGB CONC 33.3 g/dL (32.0-36.0); MEAN CORPUSCULAR VOLUME 83.4 fL (81.0-99.0); MEAN PLATELET VOLUME 10.3 fL (7.9-10.8); MONOCYTES # (AUTO) 0.3 10^3/uL (0.0-1.0); MONOCYTES % (AUTO) 3.9 %; NEUTROPHILS # (AUTO) 6.4 10^3/uL (1.5-6.6); NEUTROPHILS % (AUTO) 81.3 %; PLT - PLATELET COUNT 170 10^3/uL (130-450); RED BLOOD COUNT 4.83 10^6/uL (4.20-5.40); RED CELL DISTRIBUTION WIDTH 12.5 % (12.0-15.0); WHITE BLOOD COUNT 7.9 x10^3/uL (4.8-10.8)
[2024-05-20 08:56] LABS: ALBUMIN 5.2 g/dL (3.2-5.5); ALBUMIN/GLOBULIN RATIO 2.5 (1.0-2.2); BILIRUBIN,TOTAL 2.2 mg/dL (0.2-1.0); CALCIUM 9.9 mg/dL (8.5-10.3); CREATININE 0.7 mg/dL (0.6-1.3); MAGNESIUM 1.5 mg/dL (1.7-2.3); POTASSIUM 3.8 mmol/L (3.5-4.5); TOTAL PROTEIN 7.3 g/dL (6.4-8.9)
[2024-05-20] MEDS: MAG HYDROX/AL HYDROX/SIMETH 30 ML UDC PO STA (09:24)
[2024-05-20] MEDS: KETOROLAC 15 MG/ML VIAL IVP STA (09:42)
[2024-05-20 11:09] VITALS: BP 115/65; O2SAT 98
== END 2024-05-20 11:20 | disposition home or self-care (01) ==
LOC: ED 07:59
DX: R50.9 Fever, unspecified (principal); R11.2 Nausea with vomiting, unspecified; M79.10 Myalgia, unspecified site
CPT/HCPCS: 36415; 80053; 83690; 83735; 85025; 96374; 96375; 99283; 99284; A9270

== ENCOUNTER 2024-05-24 16:46 | Outpatient (CLI) | payer MEDICAID ==
[2024-05-24 16:55] LABS: BILIRUBIN,URINE NEGATIVE (NEGATIVE); GLUCOSE, URINE (UA) NEGATIVE (NEGATIVE); KETONES,URINE (UA) NEGATIVE (NEGATIVE); LEUKOCYTE ESTERASE, URINE NEGATIVE (NEGATIVE); NITRITE,URINE NEGATIVE (NEGATIVE); OCCULT BLOOD,URINE NEGATIVE (NEGATIVE); PROTEIN,URINE NEGATIVE (NEGATIVE); UROBILINOGEN,URINE 0.2 (NORMAL) E.U./dL (NORMAL)
[2024-05-24 16:58] LABS: CLARITY,URINE CLEAR (CLEAR)
[2024-05-24 17:02] LABS: BACTERIA,URINE None Seen /HPF (None Seen); RBC,URINE None Seen /HPF (0-5); SQUAMOUS EPITHELIAL CELL,UR RARE Squamous (<= Few); WBC,URINE 0-3 /HPF (0-5)
[2024-05-24 23:04] LABS: BACTERIAL VAGINOSIS DNA NEGATIVE (NEGATIVE); CANDIDA GLABRATA DNA NEGATIVE (NEGATIVE); CANDIDA GROUP DNA NEGATIVE (NEGATIVE); CANDIDA KRUSEI DNA NEGATIVE (NEGATIVE); TRICHOMONAS VAGINALIS DNA NEGATIVE (NEGATIVE)
== END 2024-05-24 16:47 | disposition home or self-care (01) ==
LOC: LAB.WC 16:46
PROVIDERS: ATTEND Nurse Practitioner
DX: M54.50 Low back pain, unspecified (principal)
CPT/HCPCS: 81001; 81514; 87086